=== PATIENT | female | born 1980 | race Two or more races ===

== ENCOUNTER 2017-03-29 05:07 | Inpatient (IN) | payer OTHER ==
[~2017-03-29] VITALS: Ht 160 cm; Wt 84.9 kg
[2017-03-29 05:35] VITALS: BP 112/72; PULSE 90; RESP 18
--- NOTE | 2017-03-29 06:19 | TRIAGE ---
OB Triage Datetime Report Generated by CPN: 03/29/2017 06:19 Datetime: 03/29/2017 06:00 Stage of : OB Triage Datetime: 03/29/2017 05:58 Stage of : OB Triage Labor Evaluation Frequency: 2-3 Monitor Mode: External Duration (sec)2399: 60 Quality: Moderate Pattern: Normal: <= 5 Contractions in 10 Minutes Resting Tone [place]: Relaxed Heart Rate FHR Baseline Rate: 130 Monitor Mode: External US FHR Baseline Changes: No Baseline Change Variability: Moderate 6-25 bpm Accelerations: 15X15 Decelerations: None Category: Category I Vaginal Exam Dilatation (cms): 2.0 Effacement (%): 80 Station: -2 Exam By: Jesse Goldstein Membrane Status: Ruptured Membranes Rupture Method: Spontaneous Amniotic Fluid Color: Clear Amniotic Fluid Amount: Large Amniotic Fluid Odor: None Vaginal Bleeding: None Pool: Positive Nitrazine: Positive Cervix, Consistency: Soft Cervix, Position: Posterior Presentation 'A': Cephalic Datetime: 03/29/2017 05:32 Time of Arrival: 03/29/2017 05:00 EGA: 35.6 Arrived By: Wheelchair Arrived From: Home Chief Complaint: w/ c/o ucs and large amt water beg 0440 Movement: Present Contractions: Regular Time Contractions Began: 03/29/2017 02:00 Contractions: Q2-3 Rupture of Membranes: Ruptured Vaginal Bleeding: Scant Vaginal Discharge: Present Recent Sexual Intercouse: Denies Abdominal Trauma: Not Applicable Patient Complaints: Contractions Time Provider Notified: 03/29/2017 06:00 Provider Notified: Dr Drummond Initial Plan: EFM,SVE Datetime: 03/29/2017 05:24 Stage of : OB Triage Maternal Assessment Level of Consciousness: Fully Conscious Headache: Denies Blurred Vision: No Respiratory Effort: Unlabored Nausea/Vomiting: Denies RUQ Epigastric Pain: Denies Facial Edema: None Labor Evaluation Frequency: placed Monitor Mode: External Resting Tone [place]: Relaxed Monitor Mode: External US Comments: FHT 135 Pain Assessment Pain Scale: 4 Pain Presence: Intermittent Pain Type: Contraction Pain Location: Abdomen
[2017-03-29] MEDS ORDERED: OXYTOCIN 30 UNITS/LR 500 ML IV PRN (06:30)
[2017-03-29] MEDS ORDERED: MISOPROSTOL 200 MCG TAB PR PRN (06:30)
[2017-03-29] MEDS ORDERED: OXYTOCIN 30 UNITS/LR 500 ML IV SCH (06:30)
[2017-03-29] MEDS ORDERED: BETAMET NA PHOS/AC(6 MG/ML) 5ML INJ IM ONE ×2 (06:30→18:47)
[2017-03-29] MEDS ORDERED: METHYLERGONOVINE 0.2 MG INJ IM PRN (06:30)
[2017-03-29] MEDS ORDERED: LIDOCAINE 1% (MPF) 30 ML INJ INJ PRN (06:30)
[2017-03-29] MEDS ORDERED: CARBOPROST 250 MCG INJ IM PRN (06:30)
[2017-03-29] MEDS ORDERED: IBUPROFEN 600 MG TAB PO PRN (06:30)
[2017-03-29] MEDS ORDERED: BUTORPHANOL 2 MG INJ IV PRN (06:30)
[2017-03-29] MEDS ORDERED: AMPICILLIN 2 GM/NS (PMX) 100 ML ONE (06:39)
[2017-03-29] MEDS: LACTATED RINGER'S 1,000 ML IV SCH ×3 (06:46→18:21)
[2017-03-29] MEDS ORDERED: AMPICILLIN 2 GM/NS (PMX) 100 ML IVPB ONE (07:00)
[2017-03-29 07:14] LABS: ADD SCAN DIFF NO
[2017-03-29 07:20] LABS: BASOPHILS % 0.3 % (0.0-2.0); EOSINOPHILS # 0.1 10^3/ul (0.0-0.5); HEMATOCRIT 39.9 % (37.0-47.0); HEMOGLOBIN 12.9 g/dl (12.0-16.0); LYMPHOCYTES # 3.2 10^3/ul (0.8-2.9); LYMPHOCYTES % 23.7 % (15.0-51.0); MEAN CORPUSCULAR HEMOGLOBIN 27.5 pg (29.0-33.0); MEAN CORPUSCULAR HGB CONC 32.3 g/dl (32.0-37.0); MEAN CORPUSCULAR VOLUME 85.1 fl (82.0-101.0); MEAN PLATELET VOLUME 10.5 fl (7.4-10.4); MONOCYTE # 0.9 10^3/ul (0.3-0.9); MONOCYTES % 6.6 % (0.0-11.0); NEUTROPHILS % 66.6 % (39.0-77.0); PLATELET COUNT 418 10^3/UL (140-415); RED BLOOD COUNT 4.69 10^6/ul (4.20-5.40); RED CELL DISTRIBUTION WIDTH 15.9 % (11.5-14.5); WHITE BLOOD COUNT 13.5 10^3/ul (4.8-10.8)
[2017-03-29 07:37] LABS: INR 1.01; PROTIME 13.3 Sec (12.2-14.2)
[2017-03-29 07:38] LABS: PARTIAL THROMBOPLASTIN TIME 27.1 Sec (25.0-35.0)
[2017-03-29] MEDS ORDERED: LACTATED RINGER'S 1,000 ML IV PRN (08:00)
[2017-03-29] MEDS ORDERED: FENTAnyl 2MCG/ML-ROPIV 0.2% 100 ML ONE (09:08)
[2017-03-29] MEDS: AMPICILLIN 1 GM/NS (PMX) 50 ML IV SCH ×3 (11:10→19:04)
[2017-03-29] MEDS ORDERED: NALOXONE (0.4 MG/ML) INJ IV PRN (12:30)
[2017-03-29] MEDS: FENTAnyl 2MCG/ML-ROPIV 0.2% 100 ML BAG EPI SCH ×2 (14:02→17:47)
[2017-03-29] MEDS ORDERED: MINERAL OIL LIGHT 10 ML VIAL TOP ONE (22:30)
[2017-03-29] MEDS: OXYTOCIN 30 UNITS/LR 500 ML IV SCH (23:04)
--- NOTE | 2017-03-29 23:48 | HP ---
Date/Time of Note Date/Time of Note DATE: 03/29/17 TIME: 23:42 OB - History Hx of Present Free Text/Dictation 36 y.oprimigravida at 35w6d came in triage with c/oleaking amniotic fluid in early labor u.c 2-7min cx 2 cm 70% -2 GBS pos admitted for expectant management Chief Complaint: srom. and uc Estimated Due Date: Apr 27, 2017 : 1 Para: 0 Spontaneous : 0 Therapeutic : 0 Care: Good Care Ultrasounds: Normal mid trimester US Obstetrical Complications: None Medical Complications: None Past Family/Social History * Past Medical, Surgical, Family and Obstetric Histories reviewed from chart. Blood Type: O+ Rubella: immune RPR/VDRL: Negative GBS Status: Positive HBsAG: Negative OB Admission Exam Vital Signs Vital Signs Vital Signs Date Time Temp Pulse Resp B/P Pulse Ox O2 Delivery O2 Flow Rate FiO2 03/29/17 05:35 97.7 90 18 112/72 Room Air Physical Exam HEENT: WNL Heart: Rhythm Normal Lungs: Clear, Equal Abdomen: WNL Extremities: Normal Reflexes: Normal Cervical Dilatation: 2cm Effacement: 75% Station: -2 Membranes: Ruptured Amniotic Fluid: Clear Heart Rate: 130's Accelerations: Accelerations Present Decelerations: No Decelerations Varibility: Moderate Contractions on Admission: < 5 Minutes Apart Intensity: Mild Last 72 hours Lab Results CBC & BMP 03/29/17 06:45 OB Assessment/Plan Reason for admission: rupture of membranes Other Assessment: IUP 35w6d Plan: Expectant Management JOHN WALKER MD Mar 29, 2017 23:48
--- NOTE | 2017-03-29 23:53 | LDN ---
Date/Time of Note Date/Time of Note DATE: 03/29/17 TIME: 23:48 Delivery Summary normal vaginal delivery Weeks of Gestation 35w6d Placenta Delivered: Spontaneously Meconium: none Episiotomy: Yes Indication for episiotomy due to vaginal laceration and bleeding in moderate amount Perineal laceration: 0 Laceration repair: 00chgut Anesthesia type: Epidural Estimated blood loss: 300 Sponge & Needle done & correct: Yes All needle counts correct: Yes Any foreign bodies felt in the: No Problems: Infant Delivery Information Sex Sex: male Apgars 1 Minute: 8 5 Minute: 9 10 Minute: 9 Umbilical Cord Umbilical cord with: 3 Vessels Cord presentations: nuchal cord Nuchal cord present X: 1 Cord Blood was obtained: No (stem cell collection distract) JOHN WALKER MD Mar 29, 2017 23:53
[2017-03-30] MEDS: OXYTOCIN 30 UNITS/LR 500 ML IV SCH (00:13)
[2017-03-30 00:40] VITALS: BP 119/58; PULSE 82; RESP 19
[2017-03-30] MEDS ORDERED: CARBOPROST 250 MCG INJ IM PRN (01:30)
[2017-03-30] MEDS ORDERED: MISOPROSTOL 200 MCG TAB PR PRN (01:30)
[2017-03-30] MEDS ORDERED: OXYTOCIN 30 UNITS/LR 500 ML IV PRN (01:30)
[2017-03-30] MEDS ORDERED: METHYLERGONOVINE 0.2 MG INJ IM PRN (01:30)
[2017-03-30] MEDS ORDERED: LANOLIN 7 GM TUBE TOP PRN (01:30)
[2017-03-30] MEDS ORDERED: OXYCODONE/ASPIRIN (4.88/325) TAB PO PRN (01:30)
[2017-03-30] MEDS ORDERED: ZOLPIDEM 5 MG TAB PO PRN (01:30)
[2017-03-30 01:40] VITALS: BP 110/60; PULSE 80; RESP 19
[2017-03-30] MEDS: BENZOCAINE 20% 56 ML SPRAY TOP PRN ×2 (03:21→21:28)
[2017-03-30] MEDS: WITCH HAZEL/GLYCERIN PAD PR PRN ×2 (03:21→22:27)
[2017-03-30 04:00] VITALS: BP 115/67; PULSE 81; RESP 18
[2017-03-30] MEDS: IBUPROFEN 600 MG TAB PO SCH ×4 (05:43→23:36)
[2017-03-30 07:13] LABS: ADD SCAN DIFF NO
[2017-03-30 07:17] LABS: BASOPHILS % 0.1 % (0.0-2.0); HEMATOCRIT 31.2 % (37.0-47.0); HEMOGLOBIN 10.4 g/dl (12.0-16.0); LYMPHOCYTES # 2.5 10^3/ul (0.8-2.9); LYMPHOCYTES % 10.5 % (15.0-51.0); MEAN CORPUSCULAR HGB CONC 33.3 g/dl (32.0-37.0); MEAN CORPUSCULAR VOLUME 83.9 fl (82.0-101.0); MEAN PLATELET VOLUME 10.6 fl (7.4-10.4); MONOCYTE # 1.4 10^3/ul (0.3-0.9); MONOCYTES % 5.9 % (0.0-11.0); NEUTROPHIL # 19.7 10^3/ul (1.6-7.5); NEUTROPHILS % 82.2 % (39.0-77.0); PLATELET COUNT 376 10^3/UL (140-415); RED BLOOD COUNT 3.72 10^6/ul (4.20-5.40); RED CELL DISTRIBUTION WIDTH 15.9 % (11.5-14.5)
[2017-03-30 08:15] VITALS: BP 99/72; PULSE 85; RESP 20
[2017-03-30] MEDS: SENNA/DOCUSATE NA (8.6MG/50MG) TAB PO SCH ×2 (09:07→20:32)
[2017-03-30] MEDS: OXYCODONE/ASPIRIN (4.88/325) TAB PO PRN ×2 (09:27→16:27)
[2017-03-30 16:27] VITALS: BP 106/56; PULSE 81; RESP 19
[2017-03-30 20:00] VITALS: BP 100/68; PULSE 76; RESP 18
[2017-03-31] MEDS: IBUPROFEN 600 MG TAB PO SCH ×3 (05:39→17:43)
[2017-03-31 07:50] VITALS: BP 100/70; PULSE 72; RESP 16
[2017-03-31 08:13] LABS: ADD SCAN DIFF NO
[2017-03-31 08:26] LABS: BASOPHIL # 0.1 10^3/ul (0.0-0.1); BASOPHILS % 0.3 % (0.0-2.0); EOSINOPHILS # 0.1 10^3/ul (0.0-0.5); EOSINOPHILS % 0.4 % (0.0-7.0); HEMATOCRIT 31.4 % (37.0-47.0); LYMPHOCYTES % 18.2 % (15.0-51.0); MEAN CORPUSCULAR HEMOGLOBIN 27.2 pg (29.0-33.0); MEAN CORPUSCULAR HGB CONC 31.8 g/dl (32.0-37.0); MEAN CORPUSCULAR VOLUME 85.3 fl (82.0-101.0); MEAN PLATELET VOLUME 10.6 fl (7.4-10.4); MONOCYTE # 1.3 10^3/ul (0.3-0.9); MONOCYTES % 6.2 % (0.0-11.0); NEUTROPHILS % 73.4 % (39.0-77.0); PLATELET COUNT 356 10^3/UL (140-415); RED BLOOD COUNT 3.68 10^6/ul (4.20-5.40); WHITE BLOOD COUNT 21.7 10^3/ul (4.8-10.8)
[2017-03-31] MEDS ORDERED: DIPHTH/TET/ACEL PERTUSS (ADULT) 0.5 ML VIAL IM* ONE (09:00)
[2017-03-31] MEDS: SENNA/DOCUSATE NA (8.6MG/50MG) TAB PO SCH (10:06)
[2017-03-31 16:00] VITALS: BP 111/67; PULSE 98; RESP 16
--- NOTE | 2017-03-31 16:46 | PN ---
Date/Time of Note Date/Time of Note DATE: 03/31/17 TIME: 16:39 OB Subjective Subjective Subjective no c/o OB Objective Objective Objective vss afebrile fundus firm lochia min calf neg OB Assessment/Plan Other Assessment: stable post vaginal delivery Other plan: d/s home either today or in am if baby stays JOHN WALKER MD Mar 31, 2017 16:46
--- NOTE | 2017-03-31 17:07 | PD.PPDC ---
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
[2017-03-31] MEDS: BENZOCAINE 20% 56 ML SPRAY TOP PRN (18:35)
[2017-03-31] MEDS: WITCH HAZEL/GLYCERIN PAD PR PRN (18:35)
== END 2017-03-31 21:05 | disposition home or self-care (01) | DRG 775 ==
LOC: L-D 05:07 → OBT 05:07 → L-D 06:00 → PP1 03-30 00:41
PROVIDERS: ADMIT Obstetrics & Gynecology; ATTEND Obstetrics & Gynecology
PROC: 10E0XZZ Delivery of Products of Conception, External Approach (ICD-10-PCS; principal; 2017-03-29)
PROC: 0UQGXZZ Repair Vagina, External Approach (ICD-10-PCS; 2017-03-29)
DX: O99.824 Streptococcus B carrier state complicating childbirth (principal); O69.81X0 Labor and delivery complicated by cord around neck, without compression, not applicable or unspecified; O71.4 Obstetric high vaginal laceration alone; Z3A.35 35 weeks gestation of pregnancy; Z37.0 Single live birth
CPT/HCPCS: 36415; 62319; 85025; 85610; 85730; 86592; 86900; 86901; 87340; 90715; 96360; 96365; 96372; 99464; G0463; J0290; J0702; J2590; J3010; J7120

== ENCOUNTER 2018-02-24 11:48 | Emergency (ER) | END 2018-02-24 12:55 | disposition home or self-care (01) ==

== ENCOUNTER 2018-04-05 14:37 | Emergency (ER) | END 2018-04-05 17:10 | disposition home or self-care (01) ==

== ENCOUNTER 2018-06-18 20:23 | Emergency (ER) | END 2018-06-18 23:46 | disposition home or self-care (01) ==

== ENCOUNTER 2018-10-11 13:35 | Emergency (ER) | payer OTHER ==
[~2018-10-11] VITALS: Ht 167.6 cm; Wt 83.8 kg
[~2018-10-11 13:35] MED LIST: CLIN300C10 PO; HYDR-4011 PO; IBUP-1542 PO; TRAM50TA2 PO
[2018-10-11 13:44] VITALS: Ht 167.6 cm; Wt 83.8 kg
--- NOTE | 2018-10-11 16:02 | ERD ---
ER Documentation Chief Complaint Chief Complaint Complains of a sorethroat x 3 days HPI 38-year-old female presents with 2-day history of runny nose, cough, sore throat, sneezing. Patient denies fevers, chills, drooling, trismus, difficulty swallowing. Patient has been taking cold medication but does not know the name of it. In addition patient says she is she had some dysuria last week with some incomplete voiding. Denies past medical history. Denies allergies. Denies medications. Denies surgeries. Denies social. ROS All systems reviewed and are negative except as per history of present illness. Medications Home Meds Active Scripts Benzonatate* (Tessalon Perle*) 100 Mg Capsule, 100 MG PO Q8H PRN for COUGH, #20 CAP Prov:DAISY STEWARD 10/11/18 Ibuprofen* (Motrin*) 600 Mg Tab, 600 MG PO Q6 for Pain, #30 TAB Prov:DAISY STEWARD 10/11/18 Tramadol HCl (Tramadol HCl) 50 Mg Tablet, 50 MG PO Q6 PRN for SEVERE PAIN LEVEL 7-10, #20 TAB Prov:MACIEJ NUÑEZ DATA ARCHITECT MANAGER 06/18/18 Ibuprofen* (Motrin*) 600 Mg Tab, 600 MG PO Q6H PRN for PAIN AND OR ELEVATED TEMP, #30 TAB Prov:MACIEJ NUÑEZ DATA ARCHITECT MANAGER 06/18/18 Ibuprofen* (Motrin*) 600 Mg Tab, 600 MG PO Q6H PRN for PAIN AND OR ELEVATED T EMP, #30 TAB Prov:CHACE VELAZQUEZ DATA ARCHITECT MANAGER 04/05/18 Hydrocodone/Acetaminophen ([place] 5-325 Tablet) 1 Each Tablet, 1 TAB PO Q6H PRN for PAIN, #7 TAB Prov:ALEJANDRO RODRIGUEZ PA-C 02/24/18 Clindamycin Hcl* (Clindamycin Hcl*) 300 Mg Capsule, 300 MG PO TID for 10 Days, CAP Prov:ALEJANDRO RODRIGUEZ PA-C 02/24/18 Allergies Allergies: Coded Allergies: No Known Allergy (Unverified , 06/18/18) PMhx/Soc Hx Neurological Disorder: Yes (migraine) Hx Respiratory Disorders: No Hx Cardiac Disorders: No Hx Psychiatric Problems: No Hx Miscellaneous Medical Probl: No Hx Alcohol Use: No Hx Substance Use: No Hx Tobacco Use: No FmHx Family History: No diabetes, No coronary disease, No other Physical Exam Vitals Vital Signs Date Temp Pulse Resp B/P (MAP) Pulse Ox O2 O2 Flow FiO2 Time Delivery Rate 10/11/18 98.1 75 19 124/72 100 Room Air 17:02 (89) 10/11/18 98.6 86 20 108/69 98 13:44 (82) Physical Exam General: Well developed, well nourished. No acute distress. Eyes: No icterus, lesions, injection, or edema. Sinus: Non TTP Ears: Auricles nontender, with no erythema, lesions, or masses bilaterally. TMs pearly peck with + cone of light and no bulging or fluid lines bilaterally. Auditory canal patent with no discharge or impaction bilaterally. Landmarks appreciated bilaterally. Throat: No tonsillar erythema, edema, or exudates noted bilaterally. No masses, lesions, or abscesses noted. Uvula midline. Airway patent. Mouth: Mucus membranes moist. No drooling, ulcers, bleeding, or lesions, noted. Neck: No lymphadenopathy noted. Tracheal midline, no goiter or nodules noted. No JVD. Heart: RR w/o murmur, rubs, or gallops. Lungs: Clear to auscultation bilaterally w/o wheezes, crackles, rhonchi. Symmetric rise and fall. Equal breath sounds. Psych: Normal mood and affect. Results 24 hrs Laboratory Tests Test 10/11/18 16:15 10/11/18 16:19 Urine Color YELLOW Urine Clarity CLEAR Urine pH 6.0 Urine Specific [place] 1.019 Urine Ketones NEGATIVE mg/dL Urine Nitrite NEGATIVE mg/dL Urine Bilirubin NEGATIVE mg/dL Urine Urobilinogen NEGATIVE mg/dL Urine Leukocyte Esterase NEGATIVE Cruz/ul Urine Hemoglobin NEGATIVE mg/dL Urine Glucose NEGATIVE mg/dL Urine Total Protein NEGATIVE mg/dl POC Beta HCG, Qualitative NEGATIVE Procedures/MDM ER Course: UA - negative MDM: 38-year-old female presents with 2-day history of runny nose, cough, sore throat, sneezing. Patient denies fevers, chills, drooling, trismus, difficulty swallowing. Patient has been taking cold medication but does not know the name of it. In addition patient says she is she had some dysuria last week with some incomplete voiding. UA was ordered due to symptoms of UTI, was negative. I have low suspicion for strep throat based on patient not meeting centor criteria for rapid strep testing. I have low suspicion for bacterial sinusitis. I have low suspicion for pneumonia, tuberculosis, meningitis, or other life threatening etiology based on patient history and exam findings. Most likely etiology is viral URI and no further tests are necessary. Patient given rx for ibuprofin and benzonatate for cough. Patient advised to rest and stay well hydrated. Patient discharged with strict ER precautions. Patient advised to follow up with PMD. All questions answered at discharge. Departure Diagnosis: Primary Impression: URI (upper respiratory infection) URI type: unspecified viral URI Qualified Codes: J06.9 - Acute upper respiratory infection, unspecified Additional Impression: Dysuria Condition: Stable DAISY STEWARD Oct 11, 2018 16:02
[2018-10-11] MEDS ORDERED: IBUP-1542 PO (16:04)
[2018-10-11] MEDS ORDERED: BENZ-6 PO (16:06)
[2018-10-11 17:02] VITALS: BP 124/72; PULSE 75; RESP 19
== END 2018-10-11 17:03 | disposition home or self-care (01) ==
LOC: FTE 13:35
DX: J06.9 Acute upper respiratory infection, unspecified (principal); R30.0 Dysuria
CPT/HCPCS: 81003; 81025; Z7502; 99283